=== PATIENT | female | born 1945 | race Caucasian/White ===

== ENCOUNTER → 2016-10-26 | Outpatient (CLI) | payer BC, MEDICARE ==
--- NOTE | 2016-10-27 07:49 | REP ---
LEFT-SIDED RIB SERIES: Five views including PA chest. HISTORY: Left-sided rib pain. FINDINGS: PA chest radiograph shows no evidence of pneumothorax or hydrothorax. There is minimal plate-like atelectasis in the left base. Mediastinum is not widened. Heart size is normal. Lung guzman are otherwise clear. No pleural effusion is seen. Multiple left-sided rib views demonstrate acute nondisplaced fractures of the left posterolateral 8th and 9th ribs and 7th ribs. There is deformity of the left lateral 6th rib which appears to be old as it is visible on comparison radiograph from 2009. No other acute rib fracture is seen. There is some vascular calcification and degenerative disc changes seen in the thoracic spine. IMPRESSION: Old left 6th lateral rib fracture. Acute nondisplaced left 7th, 8th and 9th posterolateral rib fractures. Discoid atelectasis left base. Signed by Law Curry MD 10/27/2016 08:26 A
== END ==
LOC: M LRY 17:35
PROVIDERS: ATTEND Nurse Practitioner Family
DX: S22.42XA Multiple fractures of ribs, left side, initial encounter for closed fracture (principal); X58.XXXA Exposure to other specified factors, initial encounter; Y92.89 Other specified places as the place of occurrence of the external cause; Y93.89 Activity, other specified; Y99.8 Other external cause status; J98.11 Atelectasis; Z87.81 Personal history of (healed) traumatic fracture

== ENCOUNTER 2020-07-17 16:57 | Inpatient (IN) | payer BC, MEDICARE ==
[~2020-07-17] VITALS: Ht 157.5 cm; Wt 65.1 kg
--- OUTSIDE RECORDS SUMMARY | 2020-07-17 17:03 | CCD ---
Author Author [facility] Organization [facility] Address Unknown Phone Unavailable Care Team Providers Care Office Equipment Mechanic Name Role Phone Rosanne Wilcox Unavailable PROBLEMS Type Condition ICD9-CM Code CWD63-HM Code Onset Dates Condition S tatus SNOMED Code Notes Problem Essential (primary) hypertension I10 Active 13212358 Problem Anxiety disorder, unspecified F41.9 Active 19 2757952 Problem Pure hypercholesterolemia E78.0 Active 754484 004 Problem Post-menopausal osteoporosis M81.0 Active 102 546238 Problem Vitamin D deficiency E55.9 Active 08221560 Problem Neck pain M54.2 Active 06436585 Problem Mixed hyperlipidemia E78.2 Active 117924509 Problem Other eczema L30.8 Active 23361200 Problem Atelectasis J98.11 Active 12105043 Problem Atelectasis of left lung J98.11 Active 6752406 7 Problem Closed fracture of multiple ribs of left side with routine healing, subsequent encounter S22.42XD Active 99102437 Problem Vertigo R42 Active 114852801 ALLERGIES Allergen (clinical drug ingredient) Drug/Non Drug Allergy do cumented on EMR Reaction Allergy Type Onset Date Status erythromycin Erythromycin(NDC Code:[address]-69) vomiting Drug All ergy Active IBS Drug Allergy Active pseudoephedrine Pseudoephedrine HCl(ND Code:[address]-13) rapi d heart beat Drug Allergy Active ENCOUNTERS from 1945 to 2020-05-28 Encounter Location Date Provider Diagnosis [facility] [place] [address] [place] [address] May, Rosanne Servage Anxiety disorder, unspecified F41.9 IMMUNIZATIONS Vaccine Route Administration Date Status Influenza (Pharmacy Given) Unknown May 02, 2018 Admin istered Pneumococcal Adult 0.5mL (Pneumovax 23) Unknown Jul 22, 2011 Administered Pneumococcal 0.5mL (Prevnar 13) Unknown Mar 22, 2017 Administered Influenza (6mo & up) Fluzone Unknown Jun 29, 2019 Adm inistered Influenza (6mo & up) Fluzone Unknown Apr 20, 2016 Adm inistered SOCIAL HISTORY Tobacco Use: Social History Observation Description Date Details (start date - stop date) Never Smoker Sex Assigned At : Social History Observation Description Sex Assigned At Unknown Audit Question Answer Notes Total Score: 0 Interpretation: Alcohol Education Lutheran: Question Answer Notes Lutheran 13 Holiness Sexual Hx: Question Answer Notes Had sex in the last 12 months (vaginal, oral, or anal)? No Have you ever had an STD? No Drug and Alcohol Question Answer Notes Total Score: 0 Interpretation: No problems reported Alcohol Screening: Question Answer Notes Did you have a drink containing alcohol in the past year? No Points 0 Interpretation Negative Tobacco Use: Question Answer Notes Are you a: never smoker REASON FOR REFERRAL No Information VITAL SIGNS No information MEDICATIONS Medication SIG (Take, Route, Frequency, Duration) Notes Start Da te End Date Status Mometasone Furoate 0.1 % 1 application topically to n dylan region Once a day prn itching for 30 day(s) Feb, Active Meclizine HCl 12.5 MG 1/2-1 tablet as needed Orall y daily as needed for dizziness October, Active Paxil 40 MG 1 tablet in the morning Orally Once a day MIKAYLA for 90 days Active Atorvastatin Calcium 20 MG 1 tablet Orally Once a day Active Hydrochlorothiazide 12.5MG 1 tablet Orally Once a day for 90 days Active Losartan Potassium 100 MG 1/2 tab Orally Once a day for 90 day(s) Active Vitamin D 2000 UNIT 1 tablet Orally Once a day Active Loratadine 10 MG 1 tablet Orally Once a day as needed Active PROCEDURES No Information RESULTS No Results REASON FOR VISIT refill MEDICAL (GENERAL) HISTORY Type Description Date Medical History hypertension Medical History hypercholesterol Medical History anxiety/drpression/seasonal affective di sorder in the winter Medical History left knee pain Medical History echocardiogram:LVEF 77% mild aortic insuff with a trace of mitral insuff 05/28/09 Medical History dobutamine nuclear study EF 73% normal hemodynamic response, no chest pain. Medical History refuses clonoscopies 03/02/18 accepts fit test Surgical History Tubal 1971 Surgical History Tubal ligation & delivery 1974 Surgical History breast biopsy 1970 Surgical History Hysterectomy 1969' Hospitalization History for reasons above Goals Section No Information Health Concerns No Information MEDICAL EQUIPMENT No Information MENTAL STATUS No Information FUNCTIONAL STATUS No Information ASSESSMENTS Encounter Date Diagnosis Assessment Notes Treatment Notes Treatm ent Clinical Notes May, Anxiety disorder, unspecified (ICD-10 - F41.9) PLAN OF TREATMENT Medication Medication Name Sig Start Date Stop Date Hydrochlorothiazide 12.5MG 1 tablet Orally Once a day for 90 day s Losartan Potassium 100 MG 1/2 tab Orally Once a day for 90 day(s ) Paxil 40 MG 1 tablet in the morning Orally Once a day MIKAYLA fo r 90 days Insurance Providers Payer Name Payer Address Payer Phone Insured Name Patient Relati onship to Insured Coverage Start Date Coverage End Date MEDICARE BLUE PPO [id number] [place] [id number] NAOMI NARAYAN self
--- OUTSIDE RECORDS SUMMARY | 2020-07-17 17:03 | CCD ---
Author Author [facility] Organization [facility] Address Unknown Phone Unavailable Care Team Providers Care Industrial Eng Name Role Phone Rosanne Wilcox Unavailable PROBLEMS Type Condition ICD9-CM Code XBB04-DA Code Onset Dates Condition S tatus SNOMED Code Notes Problem Essential (primary) hypertension I10 Active 98458638 Problem Anxiety disorder, unspecified F41.9 Active 19 1283420 Problem Pure hypercholesterolemia E78.0 Active 836578 004 Problem Post-menopausal osteoporosis M81.0 Active 102 781604 Problem Vitamin D deficiency E55.9 Active 82183584 Problem Neck pain M54.2 Active 00104552 Problem Mixed hyperlipidemia E78.2 Active 356410592 Problem Other eczema L30.8 Active 98374185 Problem Atelectasis J98.11 Active 44013273 Problem Atelectasis of left lung J98.11 Active 4174241 7 Problem Closed fracture of multiple ribs of left side with routine healing, subsequent encounter S22.42XD Active 33936458 Problem Vertigo R42 Active 459301898 ALLERGIES Allergen (clinical drug ingredient) Drug/Non Drug Allergy do cumented on EMR Reaction Allergy Type Onset Date Status erythromycin Erythromycin(NDC Code:[address]-46) vomiting Drug All ergy Active - IBS Drug Allergy Active pseudoephedrine Pseudoephedrine HCl(ND Code:[address]-49) rapi d heart beat Drug Allergy Active ENCOUNTERS from 1945 to 2020-06-27 Encounter Location Date Provider Diagnosis [facility] [place] [address] [place] [address] Jun, Rosanne Servage IMMUNIZATIONS Vaccine Route Administration Date Status Influenza [...] Notes Total Score: 0 Interpretation: Alcohol Education Spiritism: Question Answer Notes Spiritism 13 Jain Sexual Hx: Question Answer Notes Had sex [...] Information RESULTS No Results REASON FOR VISIT losartan MEDICAL (GENERAL) HISTORY Type Description Date Medical [...] 03/02/18 accepts fit test Surgical History Tubal 1970 Surgical History Tubal ligation & delivery 1974 Surgical History breast biopsy 1970 Surgical History Hysterectomy 1969' Hospitalization History for reasons above Goals Section No Information Health Concerns No Information MEDICAL EQUIPMENT No Information MENTAL STATUS No Information FUNCTIONAL STATUS No Information ASSESSMENTS No Information PLAN OF TREATMENT Medication Medication Name Sig [...] Start Date Coverage End Date MEDICARE BLUE O [address] [place] [id number] NAOMI NARAYAN self
--- OUTSIDE RECORDS SUMMARY | 2020-07-17 17:03 | CCD ---
Author Author [facility] Organization [facility] Address Unknown Phone Unavailable Care Team Providers Care Payroll Human Resources Assistant Name Role Phone ELICEO TURK MD Unavailable Unavailable BURKEELICEO MD Unavailable Unavailable BURKEELICEO MD Unavailable Unavailable BURKEELICEO MD Unavailable Unavailable BURKEELICEO MD Unavailable Unavailable BURKEELICEO MD Unavailable Unavailable BURKEELICEO MD Unavailable Unavailable BURKEELICEO MD Unavailable Unavailable BURKEELICEO MD Unavailable Unavailable BURKEELICEO MD Unavailable Unavailable BURKEELICEO MD Unavailable Unavailable BURKEELICEO MD Unavailable Unavailable BURKEELICEO MD Unavailable Unavailable BURKEELICEO MD Unavailable Unavailable BURKEELICEO MD Unavailable Unavailable BURKEELICEO MD Unavailable Unavailable BURKEELICEO MD Unavailable Unavailable BURKEELICEO MD Unavailable Unavailable BURKEELICEO MD Unavailable Unavailable BURKEELICEO MD Unavailable Unavailable BURKEELICEO MD Unavailable Unavailable ELICEO TURK MD Unavailable Unavailable ELICEO TURK MD Unavailable Unavailable BURKEELICEO MD Unavailable Unavailable ELICEO TURK MD Unavailable Unavailable BURKEELICEO MD Unavailable Unavailable BURKEELICEO MD Unavailable Unavailable BURKEELICEO MD Unavailable Unavailable BURKEELICEO MD Unavailable Unavailable BURKEELICEO MD Unavailable Unavailable BURKEELICEO MD Unavailable Unavailable BURKEELICEO MD Unavailable Unavailable ELICEO TURK MD Unavailable Unavailable ELICEO TURK MD Unavailable Unavailable ELICEO TURK MD Unavailable Unavailable BURKEELICEO MD Unavailable Unavailable BURKEELICEO MD Unavailable Unavailable BURKEELICEO MD Unavailable Unavailable BURKEELICEO MD Unavailable Unavailable BURKEELICEO MD Unavailable Unavailable ELICEO TURK MD Unavailable Unavailable BURKEELICEO MD Unavailable Unavailable BURKEELICEO MD Unavailable Unavailable BURKEELIECO MD Unavailable Unavailable BURKEELICEO MD Unavailable Unavailable BURKEELICEO MD Unavailable Unavailable BURKEELICEO MD Unavailable Unavailable BURKE, ELICEO MD Unavailable Unavailable BURKE, ELICEO MD Unavailable Unavailable BURKE, FENTON MD Unavailable Unavailable BURKE, FENTON MD Unavailable Unavailable BURKE, FENTON MD Unavailable Unavailable BURKE, FENTON MD Unavailable Unavailable BURKE, FENTON MD Unavailable Unavailable Re-disclosure Warning The records that you are about to access may contain information from federally-assisted alcohol or drug abuse programs. If such information is present, then the following federally mandated warning applies: This information has been disclosed to you from records protected by federal confidentiality rules (42 CFR part 2). The federal rules prohibit you from making any further disclosure of this information unless further disclosure is expressly permitted by the written consent of the person to whom it pertains or as otherwise permitted by 42 CFR part 2. A general authorization for the release of medical or other information is NOT sufficient for this purpose. The Federal rules restrict any use of the information to criminally investigate or prosecute any alcohol or drug abuse patient.The records that you are about to access may contain highly sensitive health information, the redisclosure of which is protected by Article 27-F of the [facility] Public Health law. If you continue you may have access to information: Regarding HIV / AIDS; Provided by facilities licensed or operated by the [facility] Office of Mental Health; or Provided by the [facility] Office for People With Developmental Disabilities. If such information is present, then the following [facility] mandated warning applies: This information has been disclosed to you from confidential records which are protected by state law. State law prohibits you from making any further disclosure of this information without the specific written consent of the person to whom it pertains, or as otherwise permitted by law. Any unauthorized further disclosure in violation of state law may result in a fine or [place] health care [facility] sentence or both. A general authorization for the release of medical or other information is NOT sufficient authorization for further disc losure. Encounters Encounter Providers Location Date Indications Data Source(s ) Unknown [address] [facility] [place] [address] 06/26/2020 12:00:00 AM EST eCW1 ([facility]) Unknown [address] [facility] [address] 05/27/2020 12:00:00 AM EST eCW1 ([facility]) Outpatient Attender: ELICEO TURK MD [facility] 0 12:00:00 AM EDT - 01/31/2020 02:12:40 PM EDT [address] [address] 11/27/2019 12:00:00 AM EDT eCW1 ([facility]) [address] [address] 09/19/2019 12:00:00 AM EDT eCW1 ([facility]) [address] [address] 09/15/2019 12:00:00 AM EDT eCW1 ([facility]) [address] [address] 08/08/2019 12:00:00 AM EST eCW1 ([facility]) Immunizations Vaccine Date Status Description Data Source(s) New in 2011. IIV4 06/29/2019 07:19:00 AM EST completed eCW1 ([facility]) New in 2011. IIV4 06/29/2019 07:19:00 AM EST completed eCW1 ([facility]) INFLUENZA VIRUS VACCINE TRIVAL SPLIT [id number](65 YR U P)/PF 06/29/2019 12:00:00 AM EST completed [facility] Insurance Providers Payer name Policy type / Coverage type Policy ID Covered republican ID Covered republican's relationship to mccloud Policy Mccloud Plan Information [facility] [id number] [facility] [id number] ANSI-Medicare Part B [id number] ANSI-Medicare Part B [id number] ANSI-Medicare Part B [id number] ANSI-Medicare Part B [id number] ANSI-Medicare Part B [id number] [facility]-Medicare Part B [id number] MEDICARE BLUE PPO 306 [id number] SP [id number] BCBS [facility] 121/621 [id number] SP [id number] EXCELL BCBS P [id number] S [id number] MEDICARE BLUE PPO P [id number] S [id number] MEDICARE BLUE PPO P [id number] S [id number] Problems, Conditions, and Diagnoses Code Display Name Description Problem Type Effective Dates Data Source(s) 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 Other specifie d anxiety disorders Diagnosis 01/31/2020 01:31:05 PM EDT [facility] R55 Syncope and collapse Syncope and collapse Diagnosis 01/31/2020 01:31:05 PM EDT [facility] E78.5 Hyperlipidemia, unspecified Hyperlipidemia, unspecifie d Diagnosis 01/31/2020 01:31:05 PM EDT [facility] I10 Essential (primary) hypertension Essential (primary) h ypertension Diagnosis 01/31/2020 01:31:05 PM EDT [facility] R94.31 Abnormal electrocardiogram [ECG] [EKG] A bnormal electrocardiogram (ECG) (EKG) Diagnosis 01/31/2020 01:31:05 PM EDT [facility]
[2020-07-17] MEDS ORDERED: ATOR1TAB21 PO (19:10)
[2020-07-17] MEDS ORDERED: LOSA100T50 PO (19:10)
[2020-07-17] MEDS ORDERED: HYDR12.55 PO (19:10)
[2020-07-17] MEDS ORDERED: PAXI40TA10 PO (19:10)
--- OUTSIDE RECORDS SUMMARY | 2020-07-17 19:31 | CCD ---
Author Author [facility] Organization [facility] Address Unknown Phone Unavailable Care Team Providers Care Vice President Global Digital Marketing Name Role Phone ELICEO TURK MD Unavailable [...] Unavailable Unavailable BURKE, ELICEO MD Unavailable Unavailable Re-disclosure Warning The records [...] is protected by Article 27-F of the [facility] Public Health law. If you continue you may have access to information: Regarding HIV / AIDS; Provided by facilities licensed or operated by the [facility] Office of Mental Health; or Provided by the [facility] Office for People With Developmental Disabilities. If such information is present, then the following [facility] mandated warning applies: This information has [...] law may result in a fine or group home sentence or both. A general authorization for the release of medical or other information is NOT sufficient authorization for further disc losure. Encounters Encounter Providers Location Date Indications Data Source(s ) Unknown [address] [facility] [place] [address] 06/26/2020 12:00:00 AM EST [facility]1 [facility] Unknown [address] [facility] [address] 05/27/2020 12:00:00 AM EST eCW1 ([facility]) Outpatient Attender: ELICEO [facility] 0 12:00:00 AM EDT - 01/31/2020 02:12:40 PM EDT [address] [address] 11/27/2019 12:00:00 AM EDT eCW1 ([facility] [address] [address] 09/19/2019 12:00:00 AM EDT eCW1 ([facility] hospital[place] [address] [address] 09/15/2019 12:00:00 AM EDT eCW1 ([facility] hospital[place] [address] [address] 08/08/2019 12:00:00 AM EST eCW1 ([facility] hospital) Immunizations Vaccine Date Status Description Data Source(s) New in 2011. IIV4 06/29/2019 07:19:00 AM EST completed eCW1 ([facility]) New in 2011. IIV4 06/29/2019 07:19:00 AM EST completed eCW1 ([facility]) INFLUENZA VIRUS VACCINE TRIVAL SPLIT [id number](65 YR U P)/PF 06/29/2019 12:00:00 AM EST completed [facility] Insurance Providers Payer name Policy type / Coverage type Policy ID Covered green party ID Covered green party's relationship to mccloud Policy Mccloud Plan Information MEDICARE BLUE PPO 306 [id number] SP [id number] BCBS [facility] 121/621 [id number] SP [id number] [facility] BCBS MEDICARE [id number] [facility] [id number] ANSI-Medicare Part B [id number] ANSI-Medicare Part B [id number] ANSI-Medicare Part B [id number] ANSI-Medicare Part B [id number] ANSI-Medicare Part B [id number] ANSI-Medicare Part B [id number] [employer] BCBS P [id number] S [id number] MEDICARE BLUE PPO P [id number] S [id number] MEDICARE BLUE PPO P [id number] S [id number] Problems, Conditions, and Diagnoses Code Display Name Description Problem Type Effective Dates Data Source(s) 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 Other specifie d anxiety disorders Diagnosis 01/31/2020 01:31:05 PM EDT [facility] R55 Syncope and collapse Syncope and collapse Diagnosis 01/31/2020 01:31:05 PM EDT [facility] E78.5 Hyperlipidemia, unspecified Hyperlipidemia, unspecifie d Diagnosis 01/31/2020 01:31:05 PM EDT [facility] I10 Essential (primary) hypertension Essential (primary) h ypertension Diagnosis 01/31/2020 01:31:05 PM EDT [facility] R94.31 Abnormal electrocardiogram [ECG] [EKG] A bnormal electrocardiogram (ECG) (EKG) Diagnosis 01/31/2020 01:31:05 PM EDT [facility]
--- NOTE | 2020-07-17 20:04 | REPVR ---
PROCEDURE INFORMATION: Exam: CT Head Without Contrast Exam date and time: 07/17/2020 7:49 PM Age: 75 years old Clinical indication: Dizziness; Additional info: CVA - nursing interventions must not delay CT TECHNIQUE: Imaging protocol: Computed tomography of the head without contrast. Radiation optimization: All CT scans at this facility use at least one of these dose optimization techniques: automated exposure control; mA and/or kV adjustment per patient size (includes targeted exams where dose is matched to clinical indication); or iterative reconstruction. Other technique: STROKE PROTOCOL was implemented. COMPARISON: No relevant prior studies available. FINDINGS: Brain: No acute intracranial hemorrhage is visualized. The white-mcnally differentiation is preserved demonstrating no acute territorial type infarct. There are scattered foci of white matter hypodensity, likely representing small vessel ischemic disease. The acuity of the white matter disease is indeterminate. There is no midline shift. Artifact limits evaluation of the ayan. Cerebellar tonsillar ectopia is visualized. This is incompletely evaluated. Cerebral ventricles: No ventriculomegaly. Bones/joints: The calvarium demonstrates no evidence for a depressed fracture. Hyperostosis frontalis interna. Paranasal sinuses: Mucosal thickening of the right frontal sinus. Mastoid air cells: No mastoid effusion. Vasculature: Hyperdensity is seen associated with the left middle cerebral artery within the sylvian fissure. Thrombus cannot be excluded. Intracranial atherosclerosis visualized. Soft tissues: Unremarkable. IMPRESSION: 1. No acute intracranial hemorrhage or acute territorial type infarct. 2. Hyperdensity is seen associated with the left middle cerebral artery within the sylvian fissure. Thrombus cannot be excluded. Correlation with CTA recommended, as clinically indicated. 3. There are scattered foci of white matter hypodensity, likely representing small vessel ischemic disease. 4. Cerebellar tonsillar ectopia is visualized. This is incompletely evaluated. 5. If further evaluation is clinically indicated, an MRI of the brain is recommended. ASSESSMENT: [place] Stroke Program Early CT Score (ASPECTS) = 10 Electronically signed by: Rafael Mancia On 07/17/2020 20:04:31 PM
--- NOTE | 2020-07-17 20:44 | REPVR ---
PROCEDURE INFORMATION: Exam: XR Chest, 1 View Exam date and time: 07/17/2020 7:40 PM Age: 75 years old Clinical indication: Other: CVA TECHNIQUE: Imaging protocol: XR of the chest Views: 1 view. COMPARISON: CR RIBS UNILATERAL WITH PA CHEST LEFT 10/26/2016 5:44 PM FINDINGS: Lungs: Left basilar atelectatic change visualized. The lungs are hyperinflated, suggestive of COPD. Pleural spaces: No pleural effusion. No pneumothorax. Heart/Mediastinum: No cardiomegaly. Bones/joints: Hypertrophic degenerative changes are noted involving the spine. Old fractures are identified of the left 6th through 8th ribs. IMPRESSION: 1. Left basilar atelectatic change visualized. 2. The lungs are hyperinflated, suggestive of COPD. 3. Old fractures are identified of the left 6th through 8th ribs. Electronically signed by: Rafael Mancia On 07/17/2020 20:44:02 PM
[2020-07-17 21:02] LABS: BASO # 0.1 10^3/uL (0.0-0.2); BASO % 0.6 % (0.0-1.0); EOS # 0.1 10^3/uL (0.0-0.5); EOS % 0.5 % (0.0-3.0); HEMATOCRIT 42.5 % (36.0-47.0); HEMOGLOBIN 13.6 g/dl (12.0-15.5); LYMPH # 2.1 10^3/uL (1.5-5.0); LYMPH % 21.5 % (24.0-44.0); MEAN CORPUSCULAR HEMOGLOBIN 29.4 pg (27.0-33.0); MONO # 0.6 10^3/uL (0.0-0.8); MONO % 6.1 % (0.0-5.0); NEUTROPHILS # 6.8 10^3/uL (1.5-8.5); PLATELET COUNT, AUTOMATED 362 10^3/uL (150-450); RED BLOOD COUNT 4.62 10^6/uL (4.00-5.40); WHITE BLOOD COUNT 9.6 10^3/uL (4.0-10.0)
[2020-07-17 21:38] LABS: BLOOD UREA NITROGEN 15 MG/DL (7-18); CARBON DIOXIDE LEVEL 27 MEQ/L (21-32); CHLORIDE LEVEL 105 MEQ/L (98-107); CK-MB VALUE MASS 1.6 NG/ML (<3.6); CPK CREATINE PHOSPHOKINASE 100 U/L (26-192); CREATININE FOR GFR 0.78 MG/DL (0.55-1.30); GLOMERULAR FILTRATION RATE > 60.0 (>39); GLUCOSE, FASTING 102 MG/DL (70-100); POTASSIUM SERUM 4.1 MEQ/L (3.5-5.1); SODIUM LEVEL 142 MEQ/L (136-145); TROPONIN I 0.07 NG/ML (< 0.10)
[2020-07-17 21:46] LABS: FREE T4 0.93 NG/DL (0.76-1.46); MAGNESIUM LEVEL 2.2 MG/DL (1.8-2.4); THYROID STIMULATING HORMONE 0.937 uIU/ML (0.358-3.740)
[2020-07-17 21:51] LABS: RSV AMPLIFICATION NEGATIVE (NEGATIVE)
[2020-07-17] MEDS ORDERED: ISOVUE-370 76% 100ML VIAL As Ordered ONE (21:55)
--- NOTE | 2020-07-17 23:15 | REPVR ---
PROCEDURE INFORMATION: Exam: CT Angiography Head With Contrast Exam date and time: 07/17/2020 10:41 PM Age: 75 years old Clinical indication: Dizziness and giddiness; Additional info: Dizziness, hyperdensity seen on noncontrast study TECHNIQUE: Imaging protocol: Computed tomography angiography of the head with intravenous contrast. 3D rendering (Not supervised by radiologist): MIP and/or 3D reconstructed images were created by the technologist. Radiation optimization: All CT scans at this facility use at least one of these dose optimization techniques: automated exposure control; mA and/or kV adjustment per patient size (includes targeted exams where dose is matched to clinical indication); or iterative reconstruction. Contrast material: ISOVUE 370; Contrast volume: 75 ml; Contrast route: INTRAVENOUS (IV); COMPARISON: CT Head without contrast 07/17/2020 7:49 PM FINDINGS: ANTERIOR CIRCULATION: Right internal carotid artery: Minimal atherosclerosis of the right internal carotid artery, without significant stenosis or occlusion. No aneurysm. Right middle cerebral artery: No occlusion or significant stenosis. No aneurysm. Right anterior cerebral artery: No occlusion or significant stenosis. No aneurysm. Left internal carotid artery: Minimal atherosclerosis of the left internal carotid artery, without significant stenosis or occlusion. No aneurysm. Left middle cerebral artery: No occlusion or significant stenosis. No aneurysm. Left anterior cerebral artery: No occlusion or significant stenosis. No aneurysm. POSTERIOR CIRCULATION: Right vertebral artery: No occlusion or significant stenosis. No aneurysm. Left vertebral artery: No occlusion or significant stenosis. No aneurysm. Basilar artery: Increased tortuosity of the basilar artery, without significant stenosis or occlusion. No aneurysm. 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 No significant stenosis or occlusion of the remaining right VEHICLE WINDOW TINTER. The right posterior communicating artery is patent. No aneurysm. Left posterior cerebral artery: Persistence of the origin of the left posterior cerebral artery, without significant stenosis or occlusion. No aneurysm. Brain: No definite mass, mass effect, or midline shift. Refer to the head CT report from the same day. Cerebral ventricles: No ventriculomegaly. Bones/joints: No acute fracture. Soft tissues: Unremarkable. IMPRESSION: 1. No significant arterial stenosis or occlusion on this CTA head. 2. Additional findings described above. Electronically signed by: Rafael Mancia On 07/17/2020 23:14:39 PM
--- NOTE | 2020-07-17 23:24 | REPVR ---
PROCEDURE INFORMATION: Exam: CT Angiography Neck With Contrast Exam date and time: 07/17/2020 10:41 PM Age: 75 years old Clinical indication: Dizziness and giddiness; Additional info: Dizziness, hyperdensity seen on noncontrast study TECHNIQUE: Imaging protocol: Computed tomography angiography of the neck with intravenous contrast. 3D rendering (Not supervised by radiologist): MIP and/or 3D reconstructed images were created by the technologist. Radiation optimization: All CT scans at this facility use at least one of these dose optimization techniques: automated exposure control; mA and/or kV adjustment per patient size (includes targeted exams where dose is matched to clinical indication); or iterative reconstruction. Contrast material: ISOVUE 370; Contrast volume: 75 ml; Contrast route: INTRAVENOUS (IV); COMPARISON: No relevant prior studies available. FINDINGS: Right common carotid artery: Mild luminal narrowing/stenosis of the proximal right common carotid artery, with increased tortuosity of the vessel. Right internal carotid artery: Atherosclerosis and less than 50% stenosis of the proximal right internal carotid artery. Right external carotid artery: No occlusion or significant stenosis. Right vertebral artery: No significant stenosis. No dissection or occlusion. Left common carotid artery: No significant stenosis. No dissection or occlusion. Left internal carotid artery: Atherosclerosis and less than 50% stenosis of the proximal left internal carotid artery. Left external carotid artery: No occlusion or significant stenosis. Left vertebral artery: Severe stenosis at the origin of the left vertebral artery, with atherosclerosis. Subclavian arteries: The bilateral subclavian arteries are patent. Mild atherosclerosis of the proximal left subclavian artery. Aorta: Atherosclerosis of the aortic arch. Oropharynx: A small calcification is visualized within the left palatine tonsil. Bones/joints: Straightening of the lordotic curvature of the cervical spine. Degenerative changes are visualized within the cervical and upper thoracic spine. Slight anterolisthesis of C4 on C5 and C7 on T1. Soft tissues: No significant soft tissue swelling. Lungs: Patchy nonspecific ground-glass density within the lungs bilaterally. Atypical infection and interstitial edema are within the differential. Within the left upper lobe of the lung on series 407, image 6, there is a 9-10 mm nodule. IMPRESSION: 1. Atherosclerosis and less than 50% stenosis of the proximal right internal carotid artery. 2. Atherosclerosis and less than 50% stenosis of the proximal left internal carotid artery. 3. Mild luminal narrowing/stenosis of the proximal right common carotid artery, with increased tortuosity of the vessel. 4. 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 5. Patchy nonspecific ground-glass density within the lungs bilaterally. Atypical infection and interstitial edema are within the differential. Clinical correlation recommended. 6. Within the left upper lobe of the lung, there is a 9-10 mm nodule. For both low risk and high risk patients, consider CT Chest at 3 months, PET/CT or biopsy. (Reference: Vijay) 7. Additional findings described above. REFERENCES: 1. Vijay Meadows, et al. Guidelines for Management of Incidental Pulmonary Nodules Detected on CT Images: From the Fleischner Society 2017. Radiology. 2017;284(1):228-243. 2. NASCET CRITERIA. The degree of internal carotid artery stenosis is based on NASCET criteria. Normal is no stenosis. Mild is less than 50% stenosis. Moderate is 50-69% stenosis. Severe is 70% to 99% stenosis. Total occlusion is no detectable patent lumen. Electronically signed by: Rafael Mancia On 07/17/2020 23:23:51 PM
[2020-07-18] MEDS ORDERED: ACETAMINOPHEN TAB 650MG DOSE (2X325MG) PO PRN (02:15)
--- OUTSIDE RECORDS SUMMARY | 2020-07-18 02:15 | CCD ---
Author Author [facility] Organization [facility] Address Unknown Phone Unavailable Care Team Providers Care Reagent Tender Name Role Phone ELICEO TURK MD Unavailable [...] is protected by Article 27-F of the [facility] Public Health law. If you continue you may have access to information: Regarding HIV / AIDS; Provided by facilities licensed or operated by the [facility] Office of Mental Health; or Provided by the [facility] Office for People With Developmental Disabilities. If such information is present, then the following [facility] mandated warning applies: This information has been [...] law may result in a fine or shelter sentence or both. A general authorization for the release of medical or other information is NOT sufficient authorization for further disc losure. Encounters Encounter Providers Location Date Indications Data Source(s ) Unknown [address] [facility] [place] [address] 06/26/2020 12:00:00 AM EST eCW1 ([facility]) Unknown [address] [facility] [address] 05/27/2020 12:00:00 AM EST eCW1 ([facility]) Outpatient Attender: ELICEO [email or web address] 0 12:00:00 AM EDT - 01/31/2020 02:12:40 PM [place] [address] [address] 11/27/2019 12:00:00 AM EDT eCW1 ([facility]) [address] [address] 09/19/2019 12:00:00 AM EDT eCW1 ([facility]) [address] [address] 09/15/2019 12:00:00 AM EDT eCW1 ([facility]) [address] [address] 08/08/2019 12:00:00 AM EST eCW1 ([facility]) Immunizations Vaccine Date Status Description Data Source(s) New in 2011. IIV4 06/29/2019 07:19:00 AM EST completed eCW1 ([facility]) New in 2011. IIV4 06/29/2019 07:19:00 AM EST completed eCW1 ([facility]) INFLUENZA VIRUS VACCINE TRIVAL SPLIT [phone](65 YR U P)/PF 06/29/2019 12:00:00 AM EST completed [facility] Insurance Providers Payer name Policy type / Coverage type Policy ID Covered alliance party ID Covered alliance party's relationship to mccloud Policy [employer] Plan Information MEDICARE BLUE PPO 306 [id number] SP [id number] BCBS [facility] 121/621 [id number] SP [id number] [facility] BCBS MEDICARE [id number] [facility] [id number] ANSI-Medicare Part B [id number] ANSI-Medicare Part B [id number] ANSI-Medicare Part B [id number] ANSI-Medicare Part B [id number] ANSI-Medicare Part B [id number] ANSI-Medicare Part B [id number] [employer] P [id number] S [id number] MEDICARE BLUE PPO P [id number] S [id number] MEDICARE BLUE PPO P [id number] S [id number] Problems, Conditions, and Diagnoses Code Display Name Description Problem Type Effective Dates Data Source(s) 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 Other specifie d anxiety disorders Diagnosis 01/31/2020 01:31:05 PM EDT [facility] R55 Syncope and collapse Syncope and collapse Diagnosis 01/31/2020 01:31:05 PM EDT [facility] E78.5 Hyperlipidemia, unspecified Hyperlipidemia, unspecifie d Diagnosis 01/31/2020 01:31:05 PM EDT [facility] I10 Essential (primary) hypertension Essential (primary) h ypertension Diagnosis 01/31/2020 01:31:05 PM EDT [facility] R94.31 Abnormal electrocardiogram [ECG] [EKG] A bnormal electrocardiogram (ECG) (EKG) Diagnosis 01/31/2020 01:31:05 PM EDT [facility]
[2020-07-18 04:15] VITALS: BP 159/77
--- NOTE | 2020-07-18 05:33 | ECGEPIP ---
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
--- NOTE | 2020-07-18 05:48 | HPEPDOC ---
[facility] Medical History & Physical Date of Admission Jul 18, 2020 Date of Service: Jul 18, 2020 Attending Physician: LULU THAO MD History and Physical CHIEF COMPLAINT: Lightheadedness HISTORY OF PRESENT ILLNESS: Patient is a 75 year old female with a past medical history significant for prolapsed mitral valve, anxioety and history of endocarditis who presented to the [facility] ER with complaint of feeling lightheaded like she is about to pass out. Patient states that for a past few weeks she has gotten odd feelings like she is going to pass out. She said that most recently it has become more frequent. She states that she had gone to the store today and had a spell where she almost passed out. She states that she feels it is due to stress as she has recently moved into her own place. She lived with her sister previously. She does state that when these episodes happen she gets a flushing feeling as well as a flutter in her chest. She denies any shortness of breath during these times or chest pain. In the ER the patient was vitally stable. EKG was sinus rhythm. Lab studies were unremarkable. CTA of the head demonstrated no significant arterial stenosis or occlusion. Neck CTA demonstrated atherosclerosis and less than 50% stenosis of the proximal right internal carotid and left internal carotid. Patient was admitted to hospitalist service for further evaluation and management PAST MEDICAL HISTORY: 1. Mitral Valve Prolapse 2. Anxiety 3. History of Endocarditis PAST SURGICAL HISTORY: 1. Breast Biopsy 2. oophorectomy SOCIAL HISTORY: Patient currently lives alone. She denies any history of smoking. She denies alcohol use. She denies IV or illicit drug use. Her PCP is Rosanne Wilcox. Her commodities manager is Dr. Rinaldi FAMILY HISTORY: She admits to a family history of valvular disorders ALLERGIES: Please see below. REVIEW OF SYSTEMS: CONSTITUTIONAL: Denies fevers, chills, unintentional weight loss or weight gain. Denies night sweats HEENT: Denies headache. Denies dysphagia. Denies odynophagia CARDIOVASCULAR: Denies chest pain or pressure. Admits to feelings of fluttering and palpitations in her chest RESPIRATORY:Denies shortness of breath. Denies wheezing. Denies coughing. GASTROINTESTINAL:. Denies Abdominal pain, nausea, vomiting, diarrhea or constipation. GENITOURINARY: Denies dysuria, increased frequency or urgency. SKIN: Denies rashes or lesions MUSCULOSKELETAL:. Denies muscle pain or weakness. NEUROLOGICAL:. Denies changes in her gait or speech. PSYCHIATRIC:. Admits to anxiety. Denies depression. ENDOCRINE:. Denies heat intolerance or cold intolerance. Denies history of diabetes. HEMATOLOGIC/LYMPHATIC:. Denies easy bruising, bleeding. denies history of DVT or pulmonary embolism. HOME MEDICATIONS: Please see below. PHYSICAL EXAMINATION: VITAL SIGNS: Temperature 96.4, pulse, 73, respiratory rate 18, blood pressure 159/77, pulse oximetry 96 % on room air. GENERAL APPEARANCE: She is awake alert and oriented. She does not appear in acute distress. she is lying comfortably on stretcher exam room. HEENT: Traumatic normocephalic. Eyes are nonicteric. Trachea is midline. mucous members are pink and moist. CARDIOVASCULAR: Normal S1, S2, regular rate and rhythm. No clicks rubs or murmurs. No carotid bruits. No JVD LUNGS: Clear Vesicular breath sounds bilaterally with good respiratory effort. No wheezes rhonchi or rales. ABDOMEN:. Soft nondistended nontender, no rebound tenderness or guarding. Normoactive bowel sounds throughout. EXTREMITIES: No edema. Full and equal pulses in bilateral upper and lower extremities. NEUROLOGICAL:. No focal neurological deficits. PSYCHIATRIC: Mood and affect appear appropriate LABORATORY DATA: See below. IMAGING: THIS REPORT CONTAINS FINDINGS THAT MAY BE CRITICAL TO PATIENT CARE. The findings were verbally communicated via telephone conference with HUMPHREY VILLARREAL at 8:07 PM EST on 07/17/2020. The findings were acknowledged and understood. Electronically signed by: Rafael Vásquez On 07/17/2020 20:07:50 PM DD: RAFAEL VÁSQUEZ MD 07/17/201948 DT: FRANSISCO 07/17/202006 DS: BRENDA 07/17/202006 PROCEDURE INFORMATION: Exam: CT Head Without Contrast Exam date and time: 07/17/2020 7:49 PM Age: 75 years old Clinical indication: Dizziness; Additional info: CVA - nursing interventions must not delay CT TECHNIQUE: Imaging protocol: Computed tomography of the head without contrast. Radiation optimization: All CT scans at this facility use at least one of these dose optimization techniques: automated exposure control; mA and/or kV adjustment per patient size (includes targeted exams where dose is matched to clinical indication); or iterative reconstruction. Other technique: STROKE PROTOCOL was implemented. COMPARISON: No relevant prior studies available. FINDINGS: Brain: No acute intracranial hemorrhage is visualized. The white-mcnally differentiation is preserved demonstrating no acute territorial type infarct. There are scattered foci of white matter hypodensity, likely representing small vessel ischemic disease. The acuity of the white matter disease is indeterminate. There is no midline shift. Artifact limits evaluation of the ayan. Cerebellar tonsillar ectopia is visualized. This is incompletely evaluated. Cerebral ventricles: No ventriculomegaly. Bones/joints: The calvarium demonstrates no evidence for a depressed fracture. Hyperostosis frontalis interna. Paranasal sinuses: Mucosal thickening of the right frontal sinus. Mastoid air cells: No mastoid effusion. Vasculature: Hyperdensity is seen associated with the left middle cerebral artery within the sylvian fissure. Thrombus cannot be excluded. Intracranial atherosclerosis visualized. Soft tissues: Unremarkable. IMPRESSION: 1. No acute intracranial hemorrhage or acute territorial type infarct. 2. Hyperdensity is seen associated with the left middle cerebral artery within the sylvian fissure. Thrombus cannot be excluded. Correlation with CTA recommended, as clinically indicated. 3. There are scattered foci of white matter hypodensity, likely representing small vessel ischemic disease. 4. Cerebellar tonsillar ectopia is visualized. This is incompletely evaluated. 5. If further evaluation is clinically indicated, an MRI of the brain is recommended. ASSESSMENT: [place] Stroke Program Early CT Score (ASPECTS) = 10 PROCEDURE INFORMATION: Exam: XR Chest, 1 View Exam date and time: 07/17/2020 7:40 PM Age: 75 years old Clinical indication: Other: CVA TECHNIQUE: Imaging protocol: XR of the chest Views: 1 view. COMPARISON: CR RIBS UNILATERAL WITH PA CHEST LEFT 10/26/2016 5:44 PM FINDINGS: Lungs: Left basilar atelectatic change visualized. The lungs are hyperinflated, suggestive of COPD. Pleural spaces: No pleural effusion. No pneumothorax. Heart/Mediastinum: No cardiomegaly. Bones/joints: Hypertrophic degenerative changes are noted involving the spine. Old fractures are identified of the left 6th through 8th ribs. IMPRESSION: 1. Left basilar atelectatic change visualized. 2. The lungs are hyperinflated, suggestive of COPD. 3. Old fractures are identified of the left 6th through 8th ribs. Electronically signed by: Rafael Vásquez On 07/17/2020 20:44:02 PM DD: RAFAEL VÁSQUEZ MD 07/17/201939 DT: VR 07/17/202043 DS: BRENDA 07/17/202043 Findings are discussed with HUMPHREY VILLARREAL , 07/17/2020 11:26 PM EST. The findings were acknowledged and understood. Electronically signed by: Rafael Vásquez On 07/17/2020 23:26:36 PM DD: RAFAEL VÁSQUEZ MD 07/17/202240 DT: FRANSISCO 07/17/202325 DS: BRENDA 07/17/202325 PROCEDURE INFORMATION: Exam: CT Angiography Neck With Contrast Exam date and time: 07/17/2020 10:41 PM Age: 75 years old Clinical indication: Dizziness and giddiness; Additional info: Dizziness, hyperdensity seen on noncontrast study TECHNIQUE: Imaging protocol: Computed tomography angiography of the neck with intravenous contrast. 3D rendering (Not supervised by radiologist): MIP and/or 3D reconstructed images were created by the technologist. Radiation optimization: All CT scans at this facility use at least one of these dose optimization techniques: automated exposure control; mA and/or kV adjustment per patient size (includes targeted exams where dose is matched to clinical indication); or iterative reconstruction. Contrast material: ISOVUE 370; Contrast volume: 75 ml; Contrast route: INTRAVENOUS (IV); COMPARISON: No relevant prior studies available. FINDINGS: Right common carotid artery: Mild luminal narrowing/stenosis of the proximal right common carotid artery, with increased tortuosity of the vessel. Right internal carotid artery: Atherosclerosis and less than 50% stenosis of the proximal right internal carotid artery. Right external carotid artery: No occlusion or significant stenosis. Right vertebral artery: No significant stenosis. No dissection or occlusion. Left common carotid artery: No significant stenosis. No dissection or occlusion. Left internal carotid artery: Atherosclerosis and less than 50% stenosis of the proximal left internal carotid artery. Left external carotid artery: No occlusion or significant stenosis. Left vertebral artery: Severe stenosis at the origin of the left vertebral artery, with atherosclerosis. Subclavian arteries: The bilateral subclavian arteries are patent. Mild atherosclerosis of the proximal left subclavian artery. Aorta: Atherosclerosis of the aortic arch. Oropharynx: A small calcification is visualized within the left palatine tonsil. Bones/joints: Straightening of the lordotic curvature of the cervical spine. Degenerative changes are visualized within the cervical and upper thoracic spine. Slight anterolisthesis of C4 on C5 and C7 on T1. Soft tissues: No significant soft tissue swelling. Lungs: Patchy nonspecific ground-glass density within the lungs bilaterally. Atypical infection and interstitial edema are within the differential. Within the left upper lobe of the lung on series 407, image 6, there is a 9-10 mm nodule. IMPRESSION: 1. Atherosclerosis and less than 50% stenosis of the proximal right internal carotid artery. 2. Atherosclerosis and less than 50% stenosis of the proximal left internal carotid artery. 3. Mild luminal narrowing/stenosis of the proximal right common carotid artery, with increased tortuosity of the vessel. 4. 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 5. Patchy nonspecific ground-glass density within the lungs bilaterally. Atypical infection and interstitial edema are within the differential. Clinical correlation recommended. 6. Within the left upper lobe of the lung, there is a 9-10 mm nodule. For both low risk and high risk patients, consider CT Chest at 3 months, PET/CT or biopsy. (Reference: Vijay) 7. Additional findings described above. REFERENCES: 1. Sakin[place]odilma H, et al. Guidelines for Management of Incidental Pulmonary Nodules Detected on CT Images: From the Fleischner Society 2017. Radiology. 2017;284(1):228-243. 2. NASCET CRITERIA. The degree of internal carotid artery stenosis is based on NASCET criteria. Normal is no stenosis. Mild is less than 50% stenosis. Moderate is 50-69% stenosis. Severe is 70% to 99% stenosis. Total occlusion is no detectable patent lumen. Electronically signed by: Rafael Vásquez On 07/17/2020 23:23:51 PM PROCEDURE INFORMATION: Exam: CT Angiography Head With Contrast Exam date and time: 07/17/2020 10:41 PM Age: 75 years old Clinical indication: Dizziness and giddiness; Additional info: Dizziness, hyperdensity seen on noncontrast study TECHNIQUE: Imaging protocol: Computed tomography angiography of the head with intravenous contrast. 3D rendering (Not supervised by radiologist): MIP and/or 3D reconstructed images were created by the technologist. Radiation optimization: All CT scans at this facility use at least one of these dose optimization techniques: automated exposure control; mA and/or kV adjustment per patient size (includes targeted exams where dose is matched to clinical indication); or iterative reconstruction. Contrast material: ISOVUE 370; Contrast volume: 75 ml; Contrast route: INTRAVENOUS (IV); COMPARISON: CT Head without contrast 07/17/2020 7:49 PM FINDINGS: ANTERIOR CIRCULATION: Right internal carotid artery: Minimal atherosclerosis of the right internal carotid artery, without significant stenosis or occlusion. No aneurysm. Right middle cerebral artery: No occlusion or significant stenosis. No aneurysm. Right anterior cerebral artery: No occlusion or significant stenosis. No aneurysm. Left internal carotid artery: Minimal atherosclerosis of the left internal carotid artery, without significant stenosis or occlusion. No aneurysm. Left middle cerebral artery: No occlusion or significant stenosis. No aneurysm. Left anterior cerebral artery: No occlusion or significant stenosis. No aneurysm. POSTERIOR CIRCULATION: Right vertebral artery: No occlusion or significant stenosis. No aneurysm. Left vertebral artery: No occlusion or significant stenosis. No aneurysm. Basilar artery: Increased tortuosity of the basilar artery, without significant stenosis or occlusion. No aneurysm. 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 No significant stenosis or occlusion of the remaining right COMPLIANCE REVIEW OFFICER. The right posterior communicating artery is patent. No aneurysm. Left posterior cerebral artery: Persistence of the origin of the left posterior cerebral artery, without significant stenosis or occlusion. No aneurysm. Brain: No definite mass, mass effect, or midline shift. Refer to the head CT report from the same day. Cerebral ventricles: No ventriculomegaly. Bones/joints: No acute fracture. Soft tissues: Unremarkable. IMPRESSION: 1. No significant arterial stenosis or occlusion on this CTA head. 2. Additional findings described above. Electronically signed by: Rafael Vásquez On 07/17/2020 23:14:39 PM DD: RAFAEL VÁSQUEZ MD 07/17/202240 DT: FRANSISCO 07/17/202313 DS: BRENDA 07/17/202313 [~ rep ct labl] MICROBIOLOGY: Please see below. ASSESSMENT: Patient is a 75-year-old female with a past medical history significant for mitral valve prolapse, anxiety and history of endocarditis who presented to [facility] emergency department with a complaint of feeling lightheaded. Patient received CT and CT imaging of the head and neck, which demonstrated 50% stenosis of the bilateral carotid arteries.. . PLAN: 1. Lightheadedness/near syncope -Patient presented complaining of lightheadedness and feeling she was about to pass out. This has been going on for several weeks, however, has recently gotten worse. Patient endorses increased amount of stress recently after moving out of her sister's house. Patient states that when she gets these episodes, she has a feeling in her chest that feels like a flutter. She denies any shortness of breath. Denies ever passing out, however, states that she feels she's getting close to passing out. Additionally, the patient states that she does get some flushing when these episodes occur. -Will place on telemetry as patient's lightheadedness may be cardiogenic -Echocardiogram ordered -Patient has bilateral atherosclerosis of the internal carotid arteries of less than 50%. ED had contacted Dr. Clark 2. Hyperlipidemia -Will continue atorvastatin 3. Hypertension -Will continue Cozaar and hydrochlorothiazide 4. Anxiety -Will continue Paxil 5. DVT prophylaxis -Lovenox Vital Signs Vital Signs Date Time Temp Pulse Resp B/P (MAP) Pulse Ox O2 Delivery O2 Flow Rate FiO2 07/18/20 04:15 96.4 73 18 159/77 (104) 96 07/18/20 03:24 Room Air Laboratory Data Labs 24H Laboratory Tests 2 07/17/20 19:56: Urine Color STRAW, Urine Appearance CLEAR, Urine pH 7.0, Urine Specific [place] 1.004, Urine Protein NEGATIVE, Urine Glucose (UA) NEGATIVE, Urine Ketones NEGATIVE, Urine Blood 1+H, Urine Nitrite NEGATIVE, Urine Bilirubin NEGATIVE, Urine Urobilinogen 0.2, Urine Leukocyte Esterase NEGATIVE, Urine WBC (Auto) 1, Urine RBC (Auto) 1, Urine Hyaline Casts (Auto) 0, Urine Bacteria (Auto) NEGATIVE, Urine Squamous Epithelial Cells 0, Urine Mucus (Auto) SMALL, Urine Sperm (Auto) 07/17/20 20:56: Immature Granulocyte % (Auto) 0.3, Neutrophils (%) (Auto) 71.0H, Lymphocytes (%) (Auto) 21.5L, Monocytes (%) (Auto) 6.1H, Eosinophils (%) (Auto) 0.5, Basophils (%) (Auto) 0.6, Neutrophils # (Auto) 6.8, Lymphocytes # (Auto) 2.1, Monocytes # (Auto) 0.6, Eosinophils # (Auto) 0.1, Basophils # (Auto) 0.1, Nucleated Red Blood Cells % (auto) 0.0, Activated Partial Thromboplast Time 25.8, Anion Gap 10, Glomerular Filtration Rate > 60.0, Calcium Level 10.0, Magnesium Level 2.2, Total Creatine Kinase 100, Creatine Kinase MB 1.6, Creatine Kinase MB Relative Index 1.60, Troponin I 0.07, Thyroid Stimulating Hormone (TSH) 0.937, Free Thyroxine 0.93, Coronavirus (COVID-19)(PCR) NEGATIVE, Influenza Type A (RT-PCR) NEGATIVE, Influenza Type B (RT-PCR) NEGATIVE, Respiratory Syncytial Virus (PCR) NEGATIVE 07/17/20 21:02: Bedside Glucose (Misc Panel) 91 CBC/BMP Laboratory Tests 07/17/20 20:56 Home Medications Scheduled Atorvastatin Calcium (Atorvastatin Calcium) 20 Mg Tablet, 20 MG PO DAILY Hydrochlorothiazide (Hydrochlorothiazide) 12.5 Mg Tablet, 12.5 MG PO DAILY Losartan Potassium (Losartan Potassium) 100 Mg Tablet, 50 MG PO DAILY Paroxetine HCl (Paxil) 40 Mg Tablet, 40 MG PO DAILY Allergies Coded Allergies: MILDEW (Verified Allergy, Unknown, 07/17/20) mold (Verified Allergy, Unknown, 07/17/20) erythromycin base (Verified Adverse Reaction, Unknown, GI upset, 07/17/20) A-FIB/CHADSVASC A-FIB History Current/History of A-Fib/PAF?: No GME ATTESTATION GME ATTESTATION My faculty preceptor for this patient encounter was physically present during the encounter and was fully available. All aspects of the patient interview, examination, medical decision making process, and medical care plan development were reviewed and approved by the faculty preceptor. The faculty preceptor is aware and concurs with the plan as stated in the body of this note and will attest to such by his/her cosignature. ATTENDING NOTE TIME OF SERVICE 302 AM is a 75 yr old F w a hx of MVP HTN DLP anxiety and depression who presented w c/o dizziness and anxiety. CTA showed ICA stenosis <50% per medical management with ASA + contact to discuss out pt carotid endarterectomy & f/u lipids, A1C MRI brain to r/o vertebrobasilar insufficiency Rest per 's H&_ HUMPHREY QUEVEDO DO Jul 18, 2020 05:48 LULU THAO MD Jul 18, 2020 06:58
[2020-07-18 06:52] LABS: HEMATOCRIT 39.6 % (36.0-47.0); HEMOGLOBIN 13.1 g/dl (12.0-15.5); MEAN CORPUSCULAR HEMOGLOBIN 30.2 pg (27.0-33.0); MEAN CORPUSCULAR HGB CONC 33.1 g/dl (32.0-36.5); MEAN CORPUSCULAR VOLUME 91.2 fl (80.0-96.0); PLATELET COUNT, AUTOMATED 351 10^3/uL (150-450); RED BLOOD COUNT 4.34 10^6/uL (4.00-5.40); WHITE BLOOD COUNT 10.6 10^3/uL (4.0-10.0)
[2020-07-18 07:17] LABS: BLOOD UREA NITROGEN 14 MG/DL (7-18); CALCIUM LEVEL 9.7 MG/DL (8.8-10.2); CARBON DIOXIDE LEVEL 26 MEQ/L (21-32); CHLORIDE LEVEL 104 MEQ/L (98-107); GLOMERULAR FILTRATION RATE > 60.0 (>39); GLUCOSE, FASTING 143 MG/DL (70-100); POTASSIUM SERUM 3.9 MEQ/L (3.5-5.1); SODIUM LEVEL 140 MEQ/L (136-145)
[2020-07-18 08:34] LABS: CHOLESTEROL LEVEL 194 MG/DL (<200); CHOLESTEROL RISK RATIO 3.233 (<5); HDL CHOLESTEROL 60 MG/DL (>40); LDL CHOLESTEROL 121 MG/DL (<100); NON-HDL-C 134 MG/DL; TRIGLYCERIDES LEVEL 67 MG/DL (<150)
[2020-07-18] MEDS ORDERED: PARoxetine 20MG TABLET PO SCH ×2 (09:00→21:00)
[2020-07-18] MEDS ORDERED: hydroCHLOROthiazide 12.5 MG CAPSULE PO SCH (09:00)
[2020-07-18] MEDS ORDERED: FUROSEMIDE 40MG/4ML VIAL (J1940) IV ONE (09:00)
[2020-07-18 09:22] LABS: HEMOGLOBIN A1c 5.9 %
[2020-07-18 09:28] VITALS: BP_SYST 144; BP_SYST 147; BP_SYST 151; BP_DIAS 80; BP_DIAS 83
[2020-07-18] MEDS: ATORVASTATIN 20 MG TAB PO SCH (09:32)
[2020-07-18] MEDS: ASPIRIN 81 MG CHEW TABLET PO SCH ×2 (09:33→19:36)
[2020-07-18] MEDS: ENOXAPARIN 40MG/0.4ML SYRINGE (J1650 PER 10MG) SC SCH (09:34)
[2020-07-18] MEDS: LOSARTAN 50MG TABLET PO SCH (09:34)
--- NOTE | 2020-07-18 13:14 | IPNPDOC ---
Subjective Date Seen The patient was seen on 07/18/20. Subjective Chief Complaint/HPI Feels very tired this morning. Says she was down in ED all nigh and did not get any sleep. No dizzines or light headedness this morning. has been ambulating independently to the bathroom with no issues. Objective Physical Examination General Exam: Positive: Alert, Cooperative, No Acute Distress Eye Exam: Positive: PERRLA, Conjunctiva & lids normal, EOMI; Negative: Sclera icteric ENT Exam: Positive: Atraumatic, Mucous membr. moist/pink, Pharynx Normal Neck Exam: Positive: Supple; Negative: JVD, thyromegaly Chest Exam: Positive: Clear to auscultation, Normal air movement Heart Exam: Positive: Rate Normal, Regular Rhythm, Normal S1, Normal S2; Negative: Murmurs, Rubs Abdomen Exam: Positive: Normal bowel sounds, Soft; Negative: Tenderness, Hepatospenomegaly Extremity Exam: Positive: Normal pulses; Negative: Clubbing, Cyanosis, Edema Skin Exam: Positive: Nl turgor and temperature; Negative: Rash, Breakdown Assessment /Plan Assessment Patient is a 75-year-old female with a past medical history significant for mitral valve prolapse, anxiety and history of endocarditis, hypertension, HLD who presented to [facility] emergency department with a complaint of feeling lightheaded. Patient received CT and CT imaging of the head and neck, which demonstrated 50% stenosis of the bilateral carotid arteries.. Presyncope Tele no events till date. CTA head shows only vertebral artery stenosis CTA neck internal carotid arteries of less than 50%. Severe stenosis at the origin of the left vertebral artery. Cannot do MRI very claustrophobic. Orthostatic vitals negative. PT eval for vestibular function. Has been having presyncopal episodes for years followed by panic attacks. Echo done Hypertensive urgency on admission CT neck showed some evidence of pulmonary vascular congestion at the upper lungs ? flash pulmonary edema will give 1 dose of IV lasix. ordered metanephrines Hyperlipidemia atorvastatin Hypertension Cozaar will give 1 dose of lasix. Anxiety and panic attacks. Paxil Possible COPD by CXR asymptomatic. DVT prophylaxis Lovenox Plan/VTE VTE Prophylaxis Ordered?: Yes VS, I&O, 24H, Fishbone Vital Signs/I&O Vital Signs Date Time Temp Pulse Resp B/P (MAP) Pulse Ox O2 Delivery O2 Flow Rate FiO2 1/28/21 09:28 84 147/83 (104) 80 151/80 (103) 94 144/83 (103) 07/18/20 04:15 96.4 18 96 07/18/20 03:24 Room Air I&O- Last 24 Hours up to 6 AM 07/18/20 06:00 Intake Total 360 ml Output Total 100 ml Balance 260 ml Laboratory Data 24H LABS Laboratory Tests 2 07/17/20 19:56: Urine Color STRAW, Urine Appearance CLEAR, Urine pH 7.0, Urine Specific [place] 1.004, Urine Protein NEGATIVE, Urine Glucose (UA) NEGATIVE, Urine Ketones NEGATIVE, Urine Blood 1+H, Urine Nitrite NEGATIVE, Urine Bilirubin NEGATIVE, Urine Urobilinogen 0.2, Urine Leukocyte Esterase NEGATIVE, Urine WBC (Auto) 1, Urine RBC (Auto) 1, Urine Hyaline Casts (Auto) 0, Urine Bacteria (Auto) NEGATIVE, Urine Squamous Epithelial Cells 0, Urine Mucus (Auto) SMALL, Urine Sperm (Auto) 07/17/20 20:56: Immature Granulocyte % (Auto) 0.3, Neutrophils (%) (Auto) 71.0H, Lymphocytes (%) (Auto) 21.5L, Monocytes (%) (Auto) 6.1H, Eosinophils (%) (Auto) 0.5, Basophils (%) (Auto) 0.6, Neutrophils # (Auto) 6.8, Lymphocytes # (Auto) 2.1, Monocytes # (Auto) 0.6, Eosinophils # (Auto) 0.1, Basophils # (Auto) 0.1, Nucleated Red Blood Cells % (auto) 0.0, Activated Partial Thromboplast Time 25.8, Anion Gap 10, Glomerular Filtration Rate > 60.0, Calcium Level 10.0, Magnesium Level 2.2, Total Creatine Kinase 100, Creatine Kinase MB 1.6, Creatine Kinase MB Relative Index 1.60, Troponin I 0.07, Thyroid Stimulating Hormone (TSH) 0.937, Free Thyroxine 0.93, Coronavirus (COVID-19)(PCR) NEGATIVE, Influenza Type A (RT-PCR) NEGATIVE, Influenza Type B (RT-PCR) NEGATIVE, Respiratory Syncytial Virus (PCR) NEGATIVE 07/17/20 21:02: Bedside Glucose (Misc Panel) 91 07/18/20 06:25: Nucleated Red Blood Cells % (auto) 0.0, Anion Gap 10, Glomerular Filtration Rate > 60.0, Calcium Level 9.7, Estimated Mean Plasma Glucose 123H, Hemoglobin A1c 5.9, Triglycerides Level 67, Total Cholesterol 194, LDL Cholesterol 121H, Non- HDL Cholesterol (LDL + VLDL) 134, Total HDL Cholesterol 60, Cholesterol/HDL Ratio 3.233 CBC/BMP Laboratory Tests 07/17/20 20:56 07/18/20 06:25 NAKIA JOVEL MD Jul 18, 2020 13:14
[2020-07-18 14:00] VITALS: BP 127/56
[2020-07-18 22:00] VITALS: BP 130/57
[2020-07-19 05:10] LABS: HEMATOCRIT 40.5 % (36.0-47.0); MEAN CORPUSCULAR HEMOGLOBIN 29.7 pg (27.0-33.0); MEAN CORPUSCULAR HGB CONC 32.1 g/dl (32.0-36.5); MEAN CORPUSCULAR VOLUME 92.5 fl (80.0-96.0); PLATELET COUNT, AUTOMATED 350 10^3/uL (150-450); RED BLOOD COUNT 4.38 10^6/uL (4.00-5.40)
[2020-07-19 05:37] LABS: BLOOD UREA NITROGEN 25 MG/DL (7-18); CALCIUM LEVEL 9.4 MG/DL (8.8-10.2); CARBON DIOXIDE LEVEL 30 MEQ/L (21-32); CHLORIDE LEVEL 104 MEQ/L (98-107); GLOMERULAR FILTRATION RATE > 60.0 (>39); GLUCOSE, FASTING 103 MG/DL (70-100); POTASSIUM SERUM 3.8 MEQ/L (3.5-5.1); SODIUM LEVEL 142 MEQ/L (136-145)
[2020-07-19 06:00] VITALS: BP 130/62
[2020-07-19] MEDS: ASPIRIN 81 MG CHEW TABLET PO SCH (09:27)
[2020-07-19] MEDS: ATORVASTATIN 20 MG TAB PO SCH (09:27)
[2020-07-19 09:28] VITALS: BP 131/80
[2020-07-19] MEDS: LOSARTAN 50MG TABLET PO SCH (09:28)
[2020-07-19] MEDS: ENOXAPARIN 40MG/0.4ML SYRINGE (J1650 PER 10MG) SC SCH (09:29)
--- NOTE | 2020-07-19 10:02 | ECHO ---
DATE OF PROCEDURE: 07/18/2020 Age: 75 Gender: Female Height: 157 cm Weight: 65 kg REFERRING PHYSICIAN: Tino Carlos DO. INDICATION: Syncope. MEASUREMENTS: IVS 0.9 cm LV 4.8 cm LVPW 0.9 cm LA 3.5 cm Aorta 2.8 cm RV 2.8 cm IVC 0.8 cm Mitral E wave velocity 76 Mitral A wave 142 E prime septal 15.7 E prime lateral 4.9 FINDINGS: This study is of limited technical quality with somewhat challenging visualization. Underlying sinus rhythm with wide QRS complex. Left ventricle is of normal size. There is a wall motion abnormality involving the mid and distal septum, distal anterior wall, apex, and distal inferior wall. These segments are severely hypokinetic almost akinetic. Remaining LV segments have normal systolic function. I estimate overall LVEF approximately 35% to 40%. The right ventricle is of normal and systolic function. Both atria appear normal. Aortic valve has sclerotic abnormalities, but mobility of leaflets is preserved. The same applies for the mitral valve. Tricuspid and pulmonic valves appear normal. No pericardial effusion is present. Inferior vena cava is of normal size and appropriately collapses with inspiration. Aortic root, aortic arch, and visualized segment of the abdominal aorta all appear normal. Doppler interrogation of the aortic valve reveals no significant stenosis and mild insufficiency. There is also mild mitral insufficiency. Mild tricuspid insufficiency is present. Calculated pulmonary artery pressure is within normal limits. Mitral inflow pattern and tissue Doppler imaging of the mitral annulus revealed grade 1 diastolic dysfunction. CONCLUSIONS: 1. Study is of acceptable technical quality, underlying sinus rhythm with wide QRS complex. 2. Normal LV size with segmental wall motion abnormality and overall estimated LVEF 35% to 40%. Grade 1 diastolic dysfunction. 3. Aortic sclerosis with mild insufficiency and no stenosis. 4. Mild mitral and tricuspid insufficiency. 5. Normal central venous pressure and normal pulmonary artery pressure. COMMENTS: It is possible that some of the wall motion abnormality described above is secondary to conductive system disease, but I do believe that the likelihood of underlying ischemic event in the past is high. MTDD
[2020-07-19] MEDS ORDERED: HYDR12.55 PO (10:42)
[2020-07-19] MEDS ORDERED: ASPI81CH8 PO (10:42)
[2020-07-26 23:07] LABS: METANEPHRINE PLASMA 48.3 pg/mL (0.0-88.0); NORMETANEPHRINE PLASMA 92.6 pg/mL (0.0-191.8)
--- NOTE | 2020-07-30 23:22 | DS.PDOC ---
Discharge Summary General Date of Admission Jul 18, 2020 at 01:16 Date of Discharge 07/19/20 Discharge Summary PROCEDURES PERFORMED DURING STAY: [None]. DISCHARGE DIAGNOSES: Presyncope due to acute CHF. Acute on Chronic Systolic and diastolic CHF Hypertensive urgency HLD Anxiety and panic attacks COPD by radiology asymptomaticl COMPLICATIONS/CHIEF COMPLAINT: Palpitations. HOSPITAL COURSE: Patient is a 75-year-old female with a past medical history significant for mitral valve prolapse, anxiety and history of endocarditis, hypertension, HLD who presented to [facility] emergency department with a complaint of feeling lightheaded. Patient received CT and CT imaging of the head and neck, which demonstrated 50% stenosis of the bilateral carotid arteries.. Presyncope Tele no events till date. CTA head shows only vertebral artery stenosis CTA neck internal carotid arteries of less than 50%. Severe stenosis at the origin of the left vertebral artery. Cannot do MRI very claustrophobic. Orthostatic vitals negative. PT eval for vestibular function negative Has been having presyncopal episodes for years followed by panic attacks. Echo shows Systolic and diastolic CHF with EF of 35% to 45%, mild MR and Mild TR. Hypertensive urgency on admission CT neck showed some evidence of pulmonary vascular congestion at the upper lungs ? flash pulmonary edema due to acute CHF with hypertensive urgency. resolved with diuresis. Plasma metanephrines an normetanephrine were normal. Hyperlipidemia atorvastatin Hypertension Cozaar will give 1 dose of lasix. Anxiety and panic attacks. Paxil Possible COPD by CXR asymptomatic. DISCHARGE MEDICATIONS: Please see below. ALLERGIES: Please see below. PHYSICAL EXAMINATION ON DISCHARGE: VITAL SIGNS: Please see below. General Exam: Positive: Alert, Cooperative, No Acute Distress Eye Exam: Positive: PERRLA, Conjunctiva & lids normal, EOMI; Negative: Sclera icteric ENT Exam: Positive: Atraumatic, Mucous membr. moist/pink, Pharynx Normal Neck Exam: Positive: Supple; Negative: JVD, thyromegaly Chest Exam: Positive: Clear to auscultation, Normal air movement Heart Exam: Positive: Rate Normal, Regular Rhythm, Normal S1, Normal S2; Negative: Murmurs, Rubs Abdomen Exam: Positive: Normal bowel sounds, Soft; Negative: Tenderness, Hepatospenomegaly Extremity Exam: Positive: Normal pulses; Negative: Clubbing, Cyanosis, Edema Skin Exam: Positive: Nl turgor and temperature; Negative: Rash, Breakdown LABORATORY DATA: Please see below ACTIVITY: [As tolerated]. DIET: gm sodium DISPOSITION: 01 Home, Self-Care. DISCHARGE INSTRUCTIONS: PMD in 1 week DISCHARGE CONDITION: [Stable]. TIME SPENT ON DISCHARGE: 35 minutes. Discharge Medications Scheduled Aspirin (Children's Aspirin) 81 Mg Tab.chew, 81 MG PO DAILY Atorvastatin Calcium (Atorvastatin Calcium) 20 Mg Tablet, 20 MG PO DAILY, (Reported) Hydrochlorothiazide (Hydrochlorothiazide) 12.5 Mg Tablet, 25 MG PO DAILY Losartan Potassium (Losartan Potassium) 100 Mg Tablet, 50 MG PO DAILY, (Reported) Paroxetine HCl (Paxil) 40 Mg Tablet, 40 MG PO DAILY, (Reported) Allergies Coded Allergies: MILDEW (Verified Allergy, Unknown, 07/17/20) mold (Verified Allergy, Unknown, 07/17/20) erythromycin base (Verified Adverse Reaction, Unknown, GI upset, 07/17/20) NAKIA JOVEL MD Jul 30, 2020 23:22
== END 2020-07-19 12:59 | disposition home or self-care (01) | DRG 293 ==
LOC: M ED 16:57 → M ED INP 07-18 01:16 → M MSPAV 07-18 04:16
PROVIDERS: ADMIT Internal Medicine; ATTEND Internal Medicine Nephrology
DX: I11.0 Hypertensive heart disease with heart failure (principal); I34.1 Nonrheumatic mitral (valve) prolapse; I50.43 Acute on chronic combined systolic (congestive) and diastolic (congestive) heart failure; F41.9 Anxiety disorder, unspecified; R55 Syncope and collapse; E78.5 Hyperlipidemia, unspecified; F32.9 Major depressive disorder, single episode, unspecified; I67.2 Cerebral atherosclerosis; I16.0 Hypertensive urgency; I65.23 Occlusion and stenosis of bilateral carotid arteries; Z79.899 Other long term (current) drug therapy; Z20.822 Contact with and (suspected) exposure to COVID-19

== ENCOUNTER → 2020-10-15 | Outpatient (CLI) | payer MEDICARE ==
[~2020-10-15] MED LIST: ASPI81CH8 PO; ATOR1TAB21 PO; HYDR12.55 PO; LOSA100T50 PO; PAXI40TA10 PO
--- NOTE | 2020-10-15 13:28 | REP ---
INDICATION: ABNORMAL CT LUNG SCREENING. 9 mm nodule left upper lobe. Three-month follow-up recommended. COMPARISON: Comparison study was a soft tissue neck CT angiography dated July 17, 2020. No comparison chest CT study.. TECHNIQUE: Helical scanning is acquired. 3 mm axial images are generated. Coronal and sagittal MPR and coronal MIP images are generated. FINDINGS: Preliminary digital infection control specialist radiograph is unremarkable. On axial CT images, the previously noted soft tissue nodule is again seen. This is noted in the left upper lobe, along the major fissure. This is displayed on page 06/24/2044 in series 201 of today's study. It measures 9 x 4 x 4 mm. There is a tiny benign perifissural nodule above this in the major fissure on the left. There are 2 adjacent noncalcified pulmonary nodules in the left lower lobe. Each of these measures 5 mm in greatest diameter. There are displayed on page is 69 and 71 of 104 in series 201 of today's study. There is a 3 mm noncalcified pulmonary nodule in the left lower lobe on page 66. No other pulmonary nodule is appreciated. No mass or infiltrate is seen. There is no evidence of pleural or pericardial effusion. No hilar or mediastinal adenopathy is observed. No bony destructive lesion is seen. There is some mild linear fibrosis in the right middle lobe. There is extensive vascular calcification along the course of the left coronary artery. Normal adrenal glands are seen. An accessory splenule is noted. The visualized upper abdominal structures are otherwise unremarkable. IMPRESSION: Noncalcified pulmonary nodules as noted above. The largest of these measures 9 mm in greatest diameter. This is unchanged in the interval since the [address] angiography of the neck study. Consider follow-up chest CT study 6 months. <Electronically signed by Simeon Curry > 10/15/20 1723
== END ==
LOC: M RAD 10:33
PROVIDERS: ATTEND Nurse Practitioner Adult Health
DX: R91.8 Other nonspecific abnormal finding of lung field (principal)

== ENCOUNTER → 2021-03-11 | Outpatient (CLI) | payer MEDICARE ==
[2021-03-11 15:43] LABS: HEMATOCRIT 39.5 % (36.0-47.0); HEMOGLOBIN 12.7 g/dl (12.0-15.5); MEAN CORPUSCULAR HEMOGLOBIN 30.1 pg (27.0-33.0); MEAN CORPUSCULAR HGB CONC 32.2 g/dl (32.0-36.5); MEAN CORPUSCULAR VOLUME 93.6 fl (80.0-96.0); PLATELET COUNT, AUTOMATED 366 10^3/uL (150-450); RED BLOOD COUNT 4.22 10^6/uL (4.00-5.40); WHITE BLOOD COUNT 8.5 10^3/uL (4.0-10.0)
[2021-03-11 16:20] LABS: ALBUMIN 3.6 GM/DL (3.2-5.2); ALT/SGPT 32 U/L (12-78); BILIRUBIN,TOTAL 0.5 MG/DL (0.2-1.0); BLOOD UREA NITROGEN 13 MG/DL (7-18); CALCIUM LEVEL 9.7 MG/DL (8.8-10.2); CARBON DIOXIDE LEVEL 31 MEQ/L (21-32); CHLORIDE LEVEL 104 MEQ/L (98-107); CHOLESTEROL LEVEL 188 MG/DL (<200); CHOLESTEROL RISK RATIO 3.916 (<5); CREATININE FOR GFR 0.73 MG/DL (0.55-1.30); GLOMERULAR FILTRATION RATE > 60.0 (>39); GLUCOSE, FASTING 101 MG/DL (70-100); HDL CHOLESTEROL 48 MG/DL (>40); LDL CHOLESTEROL 109 MG/DL (<100); NON-HDL-C 140 MG/DL; POTASSIUM SERUM 4.1 MEQ/L (3.5-5.1); SODIUM LEVEL 140 MEQ/L (136-145); TRIGLYCERIDES LEVEL 155 MG/DL (<150)
== END ==
LOC: M PLALAB 11:57
PROVIDERS: ATTEND Nurse Practitioner Adult Health
DX: Z00.00 Encounter for general adult medical examination without abnormal findings (principal); I10 Essential (primary) hypertension; E78.2 Mixed hyperlipidemia; Z13.29 Encounter for screening for other suspected endocrine disorder

== ENCOUNTER → 2021-04-28 | Outpatient (CLI) | payer MEDICARE ==
--- NOTE | 2021-04-28 12:57 | REP ---
INDICATION: ABNORMAL CT LUNG SCREENING-PULMONARY NODULES. COMPARISON: CT chest without 10/15/2020, lung windows from CT angio neck 07/17/2020. TECHNIQUE: Noncontrast scanning through the chest with coronal and sagittal reconstructions. FINDINGS: Lung guzman are well inflated on the thread cutter image. On image 46 in the left side there is a perifissural nodule 9.5 x 4.5 mm which is unchanged in size and contour dating back to 07/17/2020. A smaller stable perifissural nodule is seen above this and some minor curvilinear fibro atelectatic change laterally in the left upper lung zone. Minor apical pleuroparenchymal scarring is seen. The 2 5 mm nodules in the left lower lobe in the subpleural region of the lateral basal segment are again seen and unchanged. Right middle lobe shows a stable appearance of fibrotic change in the medial segment there is also some fibrotic subpleural change in the paraspinal right lower lobe. No other significant or new lung findings. Heart is not enlarged there is no pericardial thickening or effusion there is vascular calcification again seen in coronary arteries and at the aortic valve plane calcifications at the arch but without aneurysm of the aorta noted. No pathologic sized mediastinal or hilar adenopathy. Small amount of fluid in the superior pericardial recess again seen. No hilar, axillary or supraclavicular adenopathy evident. Bone windows show no new or acute finding in the chest. The upper abdomen show no focal lesion in the liver. There is no biliary dilatation or adjacent ascites spleen is not enlarged was unremarkable. That portion of pancreas and upper poles of kidneys are intact adrenals are normal gallbladder only partly seen but unremarkable IMPRESSION: 1. Multiple noncalcified nodules in the left lung unchanged dating back to 07/[address] for the largest of these which is 9 x 5 mm. A smaller perifissural nodule in the left upper lobe and two 5 mm nodules peripherally in the lateral basal segment of the left lower lobe are unchanged since 10/[address] No significant new findings. Stable exam. <Electronically signed by Himanshu Amador > 04/28/21 [id number]
== END ==
LOC: M PLAIMG 11:15
PROVIDERS: ATTEND Nurse Practitioner Adult Health
DX: R91.8 Other nonspecific abnormal finding of lung field (principal)

== ENCOUNTER → 2021-06-17 | Outpatient (CLI) | payer MEDICARE ==
[~2021-06-17] MED LIST changes: +LOSA100T45 PO; -LOSA100T50 PO
== END ==
LOC: M WHC 15:14
PROVIDERS: ATTEND Nurse Practitioner Adult Health
DX: Z12.31 Encounter for screening mammogram for malignant neoplasm of breast (principal)

== ENCOUNTER → 2022-02-26 | Outpatient (CLI) | payer MEDICARE ==
[2022-02-26 16:46] LABS: ALBUMIN 3.9 GM/DL (3.2-5.2); ALT/SGPT 48 U/L (12-78); BILIRUBIN,TOTAL 0.5 MG/DL (0.2-1.0); BLOOD UREA NITROGEN 15 MG/DL (7-18); CARBON DIOXIDE LEVEL 30 MEQ/L (21-32); CHLORIDE LEVEL 103 MEQ/L (98-107); CREATININE FOR GFR 0.78 MG/DL (0.55-1.30); GLOMERULAR FILTRATION RATE > 60.0 (>39); GLUCOSE, FASTING 98 MG/DL (70-100); POTASSIUM SERUM 3.7 MEQ/L (3.5-5.1); SODIUM LEVEL 138 MEQ/L (136-145); TOTAL PROTEIN 7.2 GM/DL (6.4-8.2)
[2022-02-26 17:15] LABS: TOTAL 25(OH) VITAMIN D 34.1 NG/ML (30.0-100.0)
== END ==
LOC: M PLALAB 13:06
PROVIDERS: ATTEND Nurse Practitioner Adult Health
DX: E55.9 Vitamin D deficiency, unspecified (principal); I10 Essential (primary) hypertension; Z13.29 Encounter for screening for other suspected endocrine disorder; Z79.899 Other long term (current) drug therapy

== ENCOUNTER → 2022-03-13 | Outpatient (CLI) | payer MEDICARE | LOC: M PLAIMG 12:45 | PROVIDERS: ATTEND Nurse Practitioner Adult Health | DX: R51.9 Headache, unspecified (principal) ==

== ENCOUNTER → 2022-09-04 | Outpatient (CLI) | payer MEDICARE ==
[~2022-09-04] MED LIST changes: -PAXI40TA10 PO; +PAXI40TA12 PO
[2022-09-04 13:37] LABS: HEMATOCRIT 39.5 % (36.0-47.0); HEMOGLOBIN 12.7 g/dl (12.0-15.5); MEAN CORPUSCULAR HEMOGLOBIN 30.1 pg (27.0-33.0); MEAN CORPUSCULAR HGB CONC 32.2 g/dl (32.0-36.5); MEAN CORPUSCULAR VOLUME 93.6 fl (80.0-96.0); PLATELET COUNT, AUTOMATED 367 10^3/uL (150-450); RED BLOOD COUNT 4.22 10^6/uL (4.00-5.40); WHITE BLOOD COUNT 8.5 10^3/uL (4.0-10.0)
[2022-09-04 16:22] LABS: ALBUMIN 3.9 G/DL (3.2-5.2); ALKALINE PHOSPHATASE 95 U/L (46-116); ALT/SGPT 32 U/L (7.0-40); AST/SGOT 25 U/L (<34); BILIRUBIN,TOTAL 0.7 MG/DL (0.3-1.2); BLOOD UREA NITROGEN 17 MG/DL (9-23); CALCIUM LEVEL 9.9 MG/DL (8.3-10.6); CARBON DIOXIDE LEVEL 31 MMOL/L (20-31); CHLORIDE LEVEL 101 MMOL/L (98-107); CHOLESTEROL LEVEL 174 MG/DL (<200); CHOLESTEROL RISK RATIO 3.46 (<5); CREATININE FOR GFR 0.78 MG/DL (0.55-1.30); GLOMERULAR FILTRATION RATE > 60.0 (>39); GLUCOSE, FASTING 107 MG/DL (74-106); HDL CHOLESTEROL 50.2 MG/DL (>40); NON-HDL-C 123.8 MG/DL; SODIUM LEVEL 140 MMOL/L (136-145); TOTAL 25(OH) VITAMIN D 44.3 NG/ML (20.0-100.0)
[2022-09-04 18:35] LABS: TOTAL PROTEIN 7.1 G/DL (5.7-8.2); TRIGLYCERIDES LEVEL 114 MG/DL (<150)
== END ==
LOC: M PLALAB 12:14
PROVIDERS: ATTEND Nurse Practitioner Adult Health
DX: I10 Essential (primary) hypertension (principal)

== ENCOUNTER → 2022-09-08 | Outpatient (CLI) | payer MEDICARE | LOC: M WHC 12:57 | PROVIDERS: ATTEND Nurse Practitioner Adult Health | DX: Z12.31 Encounter for screening mammogram for malignant neoplasm of breast (principal) ==

== ENCOUNTER 2023-07-05 18:02 | Emergency (ER) | payer MEDICARE ==
[~2023-07-05] VITALS: Ht 157.5 cm; Wt 65.2 kg
[~2023-07-05 18:02] MED LIST changes: -LOSA100T45 PO; +LOSA100T46 PO
[2023-07-06 00:25] VITALS: BP 172/77; TEMP 98.6; O2SAT 98
== END 2023-07-06 03:22 | disposition left against medical advice (07) ==
LOC: M ED 18:02
DX: Z53.21 Procedure and treatment not carried out due to patient leaving prior to being seen by health care provider (principal)

== ENCOUNTER → 2023-08-10 | Outpatient (CLI) | payer MEDICARE ==
[2023-08-10 14:09] LABS: HEMATOCRIT 39.9 % (36.0-47.0); MEAN CORPUSCULAR HEMOGLOBIN 30.5 pg (27.0-33.0); MEAN CORPUSCULAR HGB CONC 32.6 g/dl (32.0-36.5); MEAN CORPUSCULAR VOLUME 93.7 fl (80.0-96.0); PLATELET COUNT, AUTOMATED 349 10^3/uL (150-450); RED BLOOD COUNT 4.26 10^6/uL (4.00-5.40); WHITE BLOOD COUNT 8.1 10^3/uL (4.0-10.0)
[2023-08-10 14:31] LABS: ALBUMIN 3.9 G/DL (3.2-5.2); ALKALINE PHOSPHATASE 73 U/L (46-116); ALT/SGPT 28 U/L (7.0-40); AST/SGOT 19 U/L (<34); BILIRUBIN,TOTAL 0.4 MG/DL (0.3-1.2); BLOOD UREA NITROGEN 19 MG/DL (9-23); CALCIUM LEVEL 9.9 MG/DL (8.3-10.6); CARBON DIOXIDE LEVEL 31 MMOL/L (20-31); CHLORIDE LEVEL 102 MMOL/L (98-107); CHOLESTEROL LEVEL 179 MG/DL (<200); CHOLESTEROL RISK RATIO 3.53 (<5); CREATININE FOR GFR 0.85 MG/DL (0.55-1.30); GLOMERULAR FILTRATION RATE > 60.0 (>39); GLUCOSE, FASTING 109 MG/DL (74-106); HDL CHOLESTEROL 50.7 MG/DL (>40); LDL CHOLESTEROL 99.3 MG/DL (<100); NON-HDL-C 128.3 MG/DL; POTASSIUM SERUM 3.9 MMOL/L (3.5-5.1); SODIUM LEVEL 139 MMOL/L (136-145); TRIGLYCERIDES LEVEL 145 MG/DL (<150)
== END ==
LOC: M PLALAB 09:40
PROVIDERS: ATTEND Nurse Practitioner Adult Health
DX: I10 Essential (primary) hypertension (principal); E78.2 Mixed hyperlipidemia; E55.9 Vitamin D deficiency, unspecified

== ENCOUNTER → 2023-10-20 | Outpatient (CLI) | payer MEDICARE | LOC: M PLAIMG 14:34 | PROVIDERS: ATTEND Orthopaedic Surgery | DX: M43.17 Spondylolisthesis, lumbosacral region (principal) ==

== ENCOUNTER → 2024-03-21 | Outpatient (CLI) | payer MEDICARE ==
[2024-03-21 14:18] LABS: ALBUMIN 3.7 G/DL (3.2-5.2); ALKALINE PHOSPHATASE 90 U/L (46-116); ALT/SGPT 31 U/L (7.0-40); AST/SGOT 20 U/L (<34); BILIRUBIN,TOTAL 0.4 MG/DL (0.3-1.2); BLOOD UREA NITROGEN 21 MG/DL (9-23); CALCIUM LEVEL 9.9 MG/DL (8.3-10.6); CARBON DIOXIDE LEVEL 30 MMOL/L (20-31); CHLORIDE LEVEL 105 MMOL/L (98-107); CHOLESTEROL LEVEL 170 MG/DL (<200); CHOLESTEROL RISK RATIO 3.71 (<5); CREATININE FOR GFR 0.78 MG/DL (0.55-1.30); GLOMERULAR FILTRATION RATE > 60.0 (>39); GLUCOSE, FASTING 96 MG/DL (74-106); HDL CHOLESTEROL 45.7 MG/DL (>40); LDL CHOLESTEROL 95.7 MG/DL (<100); NON-HDL-C 124.3 MG/DL; POTASSIUM SERUM 3.8 MMOL/L (3.5-5.1); SODIUM LEVEL 140 MMOL/L (136-145); TOTAL PROTEIN 7.1 G/DL (5.7-8.2); TRIGLYCERIDES LEVEL 143 MG/DL (<150)
== END ==
LOC: M PLALAB 11:20
PROVIDERS: ATTEND Nurse Practitioner Adult Health
DX: I10 Essential (primary) hypertension (principal); E78.2 Mixed hyperlipidemia; E55.9 Vitamin D deficiency, unspecified

== ENCOUNTER → 2024-04-17 | Outpatient (CLI) | payer MEDICARE | LOC: M RAD 15:05 | PROVIDERS: ATTEND Nurse Practitioner Adult Health | DX: R91.8 Other nonspecific abnormal finding of lung field (principal) ==

== ENCOUNTER → 2024-04-26 | Outpatient (CLI) | payer MEDICARE | LOC: M WHC 14:35 | PROVIDERS: ATTEND Nurse Practitioner Adult Health | DX: Z12.31 Encounter for screening mammogram for malignant neoplasm of breast (principal) ==

== ENCOUNTER → 2024-04-26 | Outpatient (CLI) | payer MEDICARE | LOC: M PLALAB 15:47 → M PLAIMG 15:47 | PROVIDERS: ATTEND Nurse Practitioner Adult Health | DX: M54.2 Cervicalgia (principal) ==

== ENCOUNTER → 2024-05-24 | Outpatient (CLI) | payer MEDICARE | LOC: M PLAIMG 14:24 | PROVIDERS: ATTEND Physician Assistant Surgical | DX: M47.892 Other spondylosis, cervical region (principal) ==

== ENCOUNTER 2024-09-04 08:10 | Emergency (ER) | payer MEDICARE ==
[~2024-09-04] VITALS: Ht 157.5 cm; Wt 66.9 kg
[2024-09-04] MEDS: LIDOCAINE 2% 5ML JELLY UROJET TOP ONE (08:25)
[2024-09-04 09:03] LABS: BASO # 0.1 10^3/uL (0.0-0.2); BASO % 0.7 % (0.0-1.0); EOS # 0.3 10^3/uL (0.0-0.5); EOS % 3.1 % (0.0-3.0); HEMATOCRIT 38.3 % (36.0-47.0); HEMOGLOBIN 12.5 g/dl (12.0-15.5); LYMPH % 33.9 % (24.0-44.0); MEAN CORPUSCULAR HEMOGLOBIN 29.9 pg (27.0-33.0); MEAN CORPUSCULAR HGB CONC 32.6 g/dl (32.0-36.5); MEAN CORPUSCULAR VOLUME 91.6 fl (80.0-96.0); MONO # 0.8 10^3/uL (0.0-0.8); MONO % 8.9 % (2.0-8.0); NEUTROPHILS # 4.6 10^3/uL (1.5-8.5); NEUTROPHILS % 52.9 % (36.0-66.0); PLATELET COUNT, AUTOMATED 336 10^3/uL (150-450); RED BLOOD COUNT 4.18 10^6/uL (4.00-5.40); WHITE BLOOD COUNT 8.7 10^3/uL (4.0-10.0)
[2024-09-04] MEDS ORDERED: ISOVUE-370 76% 100ML VIAL As Ordered ONE (09:11)
[2024-09-04 09:21] LABS: CK-MB VALUE MASS 1.2 NG/ML (<3.6)
[2024-09-04 09:22] LABS: LIPASE 39 U/L (12-53)
[2024-09-04 09:24] LABS: ALBUMIN 3.5 G/DL (3.2-5.2); ALKALINE PHOSPHATASE 82 U/L (35-104); ALT/SGPT 30 U/L (7.0-40); AST/SGOT 33 U/L (<34); BILIRUBIN,DIRECT < 0.1 MG/DL (<0.4); BILIRUBIN,TOTAL 0.3 MG/DL (0.3-1.2); BLOOD UREA NITROGEN 22 MG/DL (9-23); CALCIUM LEVEL 9.4 MG/DL (8.3-10.6); CARBON DIOXIDE LEVEL 26 MMOL/L (20-31); CHLORIDE LEVEL 104 MMOL/L (98-107); CREATININE FOR GFR 0.72 MG/DL (0.55-1.30); GLOMERULAR FILTRATION RATE > 60.0 (>39); GLUCOSE, FASTING 107 MG/DL (74-106); MAGNESIUM LEVEL 1.8 MG/DL (1.8-2.4); POTASSIUM SERUM 4.1 MMOL/L (3.5-5.1); SODIUM LEVEL 142 MMOL/L (136-145); TOTAL PROTEIN 6.9 G/DL (5.7-8.2)
[2024-09-04 09:25] LABS: THYROID STIMULATING HORMONE 2.344 uIU/ML (0.55-4.78)
[2024-09-04 09:26] LABS: CPK CREATINE PHOSPHOKINASE 92 U/L (34-145); FREE T4 0.96 NG/DL (0.89-1.76)
[2024-09-04 10:04] LABS: KETONE, URINE AUTO RFX NEGATIVE (NEGATIVE); NITRITE, URINE AUTO RFX NEGATIVE (NEGATIVE); RBC, URINE AUTO RFX 1 /HPF (0-3); SQUAM EPITHELIAL CELL UR AURFX 0 /HPF (0-6); WBC, URINE AUTO RFX 2 /HPF (0-3)
[2024-09-04 10:05] LABS: LEUKOCYTE ESTERASE UR AUTO RFX 1+ (NEGATIVE)
[2024-09-04 12:07] LABS: CK-MB VALUE MASS < 1.0 NG/ML (<3.6)
[2024-09-04 12:08] LABS: CPK CREATINE PHOSPHOKINASE 90 U/L (34-145); MB/CK RELATIVE INDEX 1.11 (< OR =4)
[2024-09-04] MEDS ORDERED: GABA-1171 PO (12:31)
[2024-09-04] MEDS ORDERED: HYDR-3490 PO (12:31)
[2024-09-04] MEDS ORDERED: VITA100093 PO (12:31)
[2024-09-04] MEDS ORDERED: HOME MED LIST COMPLETE! XX SCH (12:35)
[2024-09-04] MEDS ORDERED: ELIQ5TAB PO (13:47)
[2024-09-04] MEDS ORDERED: METO1TAB87 PO (13:48)
[2024-09-04 14:56] VITALS: BP 132/79
[2024-09-04] MEDS: METOPROLOL TART 25 MG TABLET PO ONE (14:56)
[2024-09-04] MEDS: APIXABAN 5 MG TAB (ELIQUIS) PO ONE (14:56)
[2024-09-04 15:19] VITALS: BP 143/73; TEMP 99; O2SAT 94
== END 2024-09-04 15:23 | disposition home or self-care (01) ==
LOC: EDBD 08:10 → M ED 08:10 → EDSEX 08:10 → M ED 15:23
DX: I48.0 Paroxysmal atrial fibrillation (principal); I44.7 Left bundle-branch block, unspecified; I44.0 Atrioventricular block, first degree; I10 Essential (primary) hypertension; E78.5 Hyperlipidemia, unspecified; F41.9 Anxiety disorder, unspecified; F32.A Depression, unspecified; Z88.1 Allergy status to other antibiotic agents; Z91.09 Other allergy status, other than to drugs and biological substances; Z79.01 Long term (current) use of anticoagulants; Z79.899 Other long term (current) drug therapy
CPT/HCPCS: 36415; 71045; 71275; 80047; 80048; 80076; 81001; 82550; 82553; 83690; 83735; 83880; 84439; 84443; 84484; 85025; 87088; 87186; 87486; 87581; 87633; 87798; 93005; 93041; 94760; 99285; Q9967

== ENCOUNTER → 2024-10-02 | Outpatient (CLI) | payer MEDICARE ==
[~2024-10-02] MED LIST changes: +ELIQ5TAB PO; +GABA-1171 PO; +HYDR-3490 PO; +METO1TAB87 PO; +VITA100093 PO
== END ==
LOC: M PLALAB 14:38
PROVIDERS: ATTEND Nurse Practitioner Adult Health
DX: Z80.41 Family history of malignant neoplasm of ovary (principal)

== ENCOUNTER → 2025-03-19 | Outpatient (CLI) | payer MEDICARE ==
[2025-03-19 16:16] LABS: ALT/SGPT 29.0 U/L (7.0-40); AST/SGOT 24.0 U/L (<34); CALCIUM LEVEL 9.8 MG/DL (8.3-10.6); CARBON DIOXIDE LEVEL 28.0 MMOL/L (20-31); CHLORIDE LEVEL 104.0 MMOL/L (98-107); CHOLESTEROL LEVEL 189.0 MG/DL (<200); CHOLESTEROL RISK RATIO 3.92 (<5); CREATININE FOR GFR 0.84 MG/DL (0.55-1.30); GLOMERULAR FILTRATION RATE 70.2 (>32); LDL CHOLESTEROL 110.2 MG/DL (<100); MAGNESIUM LEVEL 2.0 MG/DL (1.8-2.4); NON-HDL-C 140.8 MG/DL; POTASSIUM SERUM 3.9 MMOL/L (3.5-5.1); SODIUM LEVEL 140.0 MMOL/L (136-145); TRIGLYCERIDES LEVEL 153.0 MG/DL (<150)
[2025-03-19 16:17] LABS: FREE T4 0.89 NG/DL (0.89-1.76); TOTAL 25(OH) VITAMIN D 49.8 NG/ML (20.0-100.0)
== END ==
LOC: M PLALAB 11:10
PROVIDERS: ATTEND Nurse Practitioner Adult Health
DX: I48.0 Paroxysmal atrial fibrillation (principal); I10 Essential (primary) hypertension; E78.2 Mixed hyperlipidemia; E55.9 Vitamin D deficiency, unspecified

== ENCOUNTER → 2025-04-10 | Outpatient (CLI) | payer MEDICARE | LOC: M WHC 14:40 | PROVIDERS: ATTEND Nurse Practitioner Adult Health | DX: Z12.31 Encounter for screening mammogram for malignant neoplasm of breast (principal); Z53.9 Procedure and treatment not carried out, unspecified reason ==

== ENCOUNTER → 2025-04-18 | Outpatient (CLI) | payer MEDICARE | LOC: M PLAIMG 15:11 | PROVIDERS: ATTEND Nurse Practitioner Adult Health | DX: R91.8 Other nonspecific abnormal finding of lung field (principal) ==

== ENCOUNTER → 2025-04-27 | Outpatient (CLI) | payer MEDICARE | LOC: M WHC 14:09 | PROVIDERS: ATTEND Nurse Practitioner Adult Health | DX: Z12.31 Encounter for screening mammogram for malignant neoplasm of breast (principal); R92.323 Mammographic fibroglandular density, bilateral breasts ==